=== PATIENT | female | born 1985 | race Two or more races ===

== ENCOUNTER 2021-01-27 10:10 | Emergency (ER) | payer OTHER, SELFPAY ==
[~2021-01-27] VITALS: Ht 165.1 cm; Wt 79.7 kg
--- NOTE | 2021-01-27 10:57 | NUR ---
BRITTANI VENTURA I DO at bedside
--- NOTE | 2021-01-27 10:58 | NUR ---
CP X 1/2 HOUR. SECOND OCCURANCE. FIRST INCIDENT WENT AWAY WITH REST. PAIN IS SUBSTERNAL RADIATES TO BACK.PT IN BED WITH CONT NEGATIVE ASSEMBLER, SPO2, BP Q 30 MIN, SIDE RAILS UP X2, CALL LIGHT IN REACH. PT REPORTS GETTING OVER COVID.
[2021-01-27] MEDS ORDERED: MAALOX/HYOSCYAMINE/LIDOCAINE 45 ML BTL ONE (11:11)
[2021-01-27 11:37] LABS: BASOPHILS % (AUTO) 1 % (0-1); EOSINOPHILS % (AUTO) 0 % (1-7); LYMPHOCYTES % (AUTO) 15 % (22-44); MEAN CORPUSCULAR HEMOGLOBIN 28.3 pg (27.0-34.8); MEAN CORPUSCULAR HGB CONC 34.3 g/dL (32.4-35.8); MEAN PLATELET VOLUME 7.1 fL (7.4-10.4); MONOCYTES % (AUTO) 8 % (2-9); NEUTROPHILS % (AUTO) 76 % (42-75); PLATELET COUNT 425 x10^3/uL (130-400); RED BLOOD COUNT 5.02 x10^6/uL (3.82-5.3); RED CELL DISTRIBUTION WIDTH 14.2 % (9.6-15.2)
[2021-01-27 11:48] LABS: ALBUMIN 3.6 g/dL (3.4-5.0); CALCIUM 9.5 mg/dL (8.5-10.1)
[2021-01-27 11:53] LABS: ALANINE AMINOTRANSFERASE 51 U/L (12-78); ALKALINE PHOSPHATASE 89 U/L (45-117); BILIRUBIN,TOTAL 0.7 mg/dL (0.2-1.0); CREATININE 0.42 mg/dL (0.55-1.02)
[2021-01-27] MEDS ORDERED: MAALOX/HYOSCYAMINE/LIDOCAINE 45 ML BTL PO ONE (12:00)
[2021-01-27 12:18] LABS: ANION GAP 9 mmol/L (5-15); CHLORIDE 105 mmol/L (98-107)
--- NOTE | 2021-01-27 12:40 | NUR ---
PT CALM, REPORTS THAT SHE IS FEELING BETTER ATER GI COCKTAIL
[2021-01-27 13:39] VITALS: BP 124/74
== END 2021-01-27 13:41 | disposition home or self-care (01) ==
LOC: ED 13:05
DX: K21.9 Gastro-esophageal reflux disease without esophagitis (principal)
CPT/HCPCS: 36415; 71046; 80053; 83690; 84703; 85025; 93005; 99285